=== PATIENT | male | born 1990 | race Caucasian/White ===

== ENCOUNTER 2016-05-25 18:23 | Emergency (ER) | payer SELFPAY ==
--- NOTE | 2016-06-10 08:09 | ER ---
ADMIT: 05/25/2016 RM/LOC: ER [facility] MR#: [id number] [address] [facility] [address] [place], [place] [address] ANAHI SUAREZ [address] [place] [address] Emergency Room Report SEX: M AGE: 25 : 1990 DATE: 05/25/2016 HISTORY OF PRESENT ILLNESS: The patient is a police detainee brought in by police with injury to the face. Apparently, he ran from the police, was tased and his face planted on cement. He has abrasions to his right cheek, laceration to the right upper eyelid and chin and also right ring finger. He did not lose consciousness. I tried to order an x-ray of the neck (cervical spine), but he refused because he did not have any money to take care of his bill. PAST MEDICAL HISTORY: Hydrocephalus. IMMUNIZATIONS: Apparently, I ordered the Tdap. Tdap was given, but is was not documented. SOCIAL HISTORY: He is a pack of a day smoker, meth week a day. PHYSICAL EXAMINATION: GENERAL: He is alert and oriented. Teeth are intact. The laceration in the right NEURO: Oriented x4. RESPIRATION/CHEST: No distress. CHIN: Three sutures simple interrupted after cleaning the area with 6-0 Prolene. Right eyelid, 2 stitches in the corner of the right eyelid with 6-0 Prolene. Right ring finger, three sutures. This is a procedure that was done after I reviewed that did not have any other sutures in hand and was able to close it with 6-0. The finger was dressed up to prevent moving to detach the sutures. The area was about 2.5 cm, three sutures were applied after injecting around the area with lidocaine. CLINICAL IMPRESSION: 1. Medical clearance. 2. Facial abrasion. 3. Laceration to face and chin, right ring finger. PLAN: Released to police with instructions to have sutures removed in the face in 3 to 5 days, and in the hand 7 to 10 days. MALACHI Rivera / Hawk Champion MD / colt JOB #: [id number] CC: Hawk Champion MD, Attending Physician Will Horn MD, Family Physician
== END 2016-05-25 19:45 | disposition home or self-care (01) ==
LOC: ER 18:23
PROC: 0HQFXZZ Repair Right Hand Skin, External Approach (ICD-10-PCS; principal; 2016-05-25)
PROC: 0HQ1XZZ Repair Face Skin, External Approach (ICD-10-PCS; principal; 2016-05-25)
DX: S01.81XA Laceration without foreign body of other part of head, initial encounter (principal); S61.214A Laceration without foreign body of right ring finger without damage to nail, initial encounter; F17.210 Nicotine dependence, cigarettes, uncomplicated; W19.XXXA Unspecified fall, initial encounter

== ENCOUNTER 2016-07-14 10:01 | Inpatient (IN) | payer OTHER ==
[~2016-07-14] VITALS: Ht 162.6 cm; Wt 60.9 kg
--- NOTE | ~2016-07-14 | CLPRLASSUM ---
PATIENT: ANAHI SUAREZ | | [facility] UNIT #: [id number] | [address] AGE/SEX: 25 M : [birth year] | [address] | [place] [address] ADMIT/REG DATE: 07/14/16 | ROOM: [facility] LOC: ADTC | ADTC | Client Problem List/Assessment Summary Date: JULY 23 Problems identified by the client: PRIMARY SUPPORT GROUP, SOCIAL, LEGAL, EMPLOYMENT, HOUSING Problems identified by significant others: SAME ABOVE Client's Strengths as Identified by Client: POSITIVE, DETERMINED, CONSISTANT, DEPENDABLE Problem List: T CLIENT'S LONG HISTORY OF ALCOHOL/DRUG ABUSE HAS RESULTED IN MULTIPLE TREATMENT EPISODES, STRAINED RELATIONSHIPS WITH HIS FAMILY/DAUGHTER, INABILITY TO OBTAIN AND MAINTAIN SECURE EMPLOYMENT, AN EXTENSIVE LEGAL HISTORY AND INCARCERATION. T CLIENT CONTINUES TO DISPLAY DENIAL AND DELUSION. CLIENT CHECKED IN TO TREATMENT, VERBALIZES WILLINGNESS AND A DESIRE FOR USP RECOVERY YET CONTINUES TO WANT TO "RUN THE SHOW" AND PUT CONDITIONS ON HIS WILLINGNESS. T CLIENT PROFESSES A BELIEF IN GOD AND A DESIRE FOR GOD'S WILL, BUT STILL WANTS "TO BE IN CONTROL" DESPITE HIS CURRENT SITUATION AND HISTORY WITH MULTIPLE RELAPSES. T CLIENT VERBALIZES GUILT AND SHAME FOR PAIN HE HAS CAUSED HIS FAMILY. T CLIENT NEEDS TO IDENTIFY PROS/CONS OF GOING TO A SHELTER HOUSE AFTER HE COMPLETES RESIDENTIAL TREATMENT. Code Bryant: T: to be addressed during course of treatment O: problem noted, expected to resolve itself with abstinence--specific tx plan not required R: problem noted, will be referred upon discharge PRIMARY COUNSELOR: JAMIE CURTIS [facility]
--- NOTE | ~2016-07-14 | INDIVTXPLN ---
PATIENT: ANAHI SUAREZ | | [facility] UNIT #: [id number] | [address] AGE/SEX: 25 M : [birth year] | [address] | [place] [address] ADMIT/REG DATE: 07/14/16 | ROOM: [facility] LOC: ADTC | ADTC | Individualized Treatment Plan Date: 21 JUL 2016 Problem Statement/Issue Identified: MICHAEL'S LONG HISTORY OF ALCOHOL/DRUG ABUSE HAS RESULTED IN MULTIPLE TREATMENT EPISODES, STRAINED RELATIONSHIPS WITH HIS FAMILY/YOUNG DAUGHTER, INABILITY TO OBTAIN AND MAINTAIN SECURE EMPLOYMENT, HOUSING AND EXTENSIVE LEGAL HISTORY/INCARCERATION. Goal: MICHAEL WILL HONESTLY EXAMINE HIS ADOLESCENT AND ADULT YEARS AND CLEARLY IDENTIFY AND TAKE OWNERSHIP OF THE IMPACT DRUGS/ALCOHOL/CRIMINAL THINKING HAS HAD ON HIS LIFE AND ABILITY TO BE A PRODUCTIVE MEMBER OF SOCIETY. Objectives/Activities to achieve goal: 1. Michael will complete GETTING STARTED packet including a brief life history. chemical use history/consequences and identify personality characteristics of Michael in active addiction vs. Michael clean and sober. He will process his work with his primary counselor and his peer group remaining open to feedback. Due Date: Complete: Incomplete: 2. Michael will complete an honest and through STEP ONE, providing specific examples of thinking and behaviors in each part of his life, including garcia personal values and how he has compromised them in his addiction. Due Date: Complete: Incomplete: 3. Michael will read BokeNBandwagonIN highlighting examples of thinking and behaviors that parallel his own thinking/behaviors/reactions. He will process his work and any insights gained with his primary counselor. Due Date: Complete: Incomplete: 4. Michael will complete MY CHANGE PLAN recognizing that "change is hard" even when we recognize the need, and individuals who continue to experience successful recovery, have had to change "EVERYTHING!" Michael will share his work, and any insights gained with is primary counselor and selected pages with his peer group. Due Date: Complete: Incomplete: Client signature Date Counselor signature Date Outcome/Measurement of Progress Towards Goal: PATIENT: ANAHI SUAREZ | | [facility] UNIT #: [id number] | [address] AGE/SEX: 25 M : [birth year] | [address] | [place] [address] ADMIT/REG DATE: 07/14/16 | ROOM: [facility] LOC: ADTC | ADTC | Individualized Treatment Plan Counselor's signature Date
--- NOTE | ~2016-07-14 | RESCARESUM ---
PATIENT: ANAHI SUAREZ | | [facility] UNIT #: [id number] | [address] AGE/SEX: 25 M : [birth year] | [address] | [place] [address] ADMIT/REG DATE: 07/14/16 | ROOM: 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 MUCH OF HIS SHARING AND MOST EXAMPLES PROVIDED WERE SUPERFICIAL OF OF LITTLE CONSEQUENCE. HE DID NOT REACH ANY GOALS. CLIENT LEFT AMA (AGAINST MEDICAL ADVICE ) ON DAY 13 OF HIS TREATMENT. Continued Obstacles to Sobriety/Relapse Issues: SELF-WILL, POOR IMPLUSE CONTROL, CLIENT VERBALIZES A DESIRE FOR CHANGE BUT SHOWS LITTLE MOTIVATION TO BRING ABOUT THAT CHANGE. LACK OF HEALTHY SUPPORT SYSTEM: EXTENSIVE LEGAL Family Issues Addressed: NO FAMILY INVOLVEMENT Y Individual Therapy Y Group Therapy Y Educational Series on Substance Abuse N Parents/Significant Others Attended Family Program Y Accepting of Substance Abuse Problem Completed AA Step # 1 During This Level of Care SUPERFICIAL EXAMPLES OF BEHAVIOURS/CONSEQUENCES Significant Incidences During Treatment: CLIENT DISPLAYED A "KNOW IT ALL ATTITUDE" TO STAFF AND PEERS. HE OFTEN CHALLANGED/ARGUED WITH STAFF WHEN REDIRECTED. CLIENT STILL WANTING TO DO THINGS HIS WAY. Reason For Discharge: Y Left Tx Against Medical Advice/Treatment Goals Not Complete PATIENT: ANAHI SUAREZ | | [facility] UNIT #: [id number] | [address] AGE/SEX: 25 M : [birth year] | [address] | [place] [address] ADMIT/REG DATE: 07/14/16 | ROOM: [facility] LOC: ADTC | ADTC | Summary of Residential Care Continuing Care Plan/Recommendations: Y Sponsor Y AA Meetings/NA Meetings Y CLIENT MAY NEED TO BE RE-EVALUATED FOR CURRENT USE HISTORY; CLIENT LIKELY NEEDS [facility] TREATMENT FOLLOWED BY 6-9 MONTHS IN A 1/2-HOUSE. Specific Continuing Care Plan: SEE ABOVE RECOMMENDATIONS PRIMARY COUNSELOR: JAMIE CURTIS [facility]
--- NOTE | 2016-07-14 15:21 | NUR ---
Client is a 25 y/o single male, referred to treatment by his father and brought here today by his step-father. Client came from detention, where he had been for 45 days. Client states DOC is meth, last used 04/27/2016 in the amount of 1.5 gram, client also smoked a single marijuana "blunt" at that time. Client states NKMA and brings no medication with him today. Client was searched, no contraband found. Client did surrender an open pack of cigarettes which were placed in lock storage at the tech station. Client stated that he anticipates family group participation from his mom and his significant other.
--- NOTE | 2016-07-14 17:57 | NUR ---
INITIAL SESSION 1 HR: met with client to welcome him to treatment and ORIENTED HIM TO GUIDELINES, GOALS AND OBJECTIVES. Client shared that he completed res tx here in 2011 and did some aftercare before dropping out. Client said he has charges pending that could get him 20 years in long term. Unfortunately, he seems "underwhelmed" and over confident that he can get probabion. Client did present a visitor's list and requested permission to contact his SO for tolletries and cigarettes. He indicated that she will participate as much as her job will allow.
--- NOTE | 2016-07-14 18:00 | NUR ---
FAMILY CONTACT: Effort to reach client's SO failed. Msg left.
--- NOTE | 2016-07-14 18:15 | NUR ---
Education 1HR: Clt watched video called "Predator part 1" by Santo Hernández with staff present.
--- NOTE | 2016-07-14 23:03 | NUR ---
Tech Note: Client attended the A.A.Meeting. SE: Seeing his mother
--- NOTE | 2016-07-14 23:20 | NUR ---
Education Note: Not yet in programming during 1:00 Education video
--- NOTE | 2016-07-15 04:07 | NUR ---
Bed Note: Client was in bed and motionless at all bed checks.
--- NOTE | 2016-07-15 11:30 | NUR ---
Group 1.5 hr/ 11:1 Client was oriented to group and rules. 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 Client shared about his parents, fear and hurt that mom has Syrosis and hates to see her deteriorate, needs liver transplant. He shared he has social anxiety in groups with more than 5 people. He shared about legals and not being honest til now.
--- NOTE | 2016-07-15 14:33 | NUR ---
PEER REVIEWS 1.5 HRS: Clt participated in peer review process and was able to give open and honest feedback to those receiving a review.
--- NOTE | 2016-07-15 15:38 | NUR ---
Tech Note: Client participated in group walk and watched "Marijuana" by Santo Hernández. Assignment being worked on is Getting Started.
--- NOTE | 2016-07-15 23:11 | NUR ---
Tech note: Client played games and watched movies. Client walked to an offsite AA meeting.
--- NOTE | 2016-07-16 03:58 | NUR ---
Bed note: Client was in bed with eyes closed and no distress at all bed checks
--- NOTE | 2016-07-16 16:46 | NUR ---
Tech Note: Client went to A.A.Meeting at [address]. Client also went on walk. Client is working on Getting Started
--- NOTE | 2016-07-16 21:55 | NUR ---
Tech note: Client's were just starting to grill around 6pm so we did not have rec this evening. Client walked to an offsite AA meeting, played games and watched movies. SE; Family
--- NOTE | 2016-07-17 04:44 | NUR ---
tech note: client was motionless in no distress at all bed checks.
--- NOTE | 2016-07-17 17:23 | NUR ---
Tech Note: Client participated in Big Book study. Client attended voodoo. Client stated that he is working on, "How to Get Started in Treatment." Client received visitors.
--- NOTE | 2016-07-17 23:17 | NUR ---
tech note: Client participated in community clean & attended BUSINESS TECHNOLOGY PROFESSOR meeting. Client was redirected for being in the front lobby after the BUSINESS TECHNOLOGY PROFESSOR meeting. SE: visits.
--- NOTE | 2016-07-18 04:23 | NUR ---
tech note: client was motionless in no distress at all bed checks.
--- NOTE | 2016-07-18 12:00 | NUR ---
Experiential Group 1.5 hr/ Clients all participated in looking at family dynamics and feelings through sculpturing and participated with feedback, relating and/or role-playing. This client was involved in relating/feedback.
--- NOTE | 2016-07-18 14:07 | NUR ---
CASEMANAGEMENT: Talked with client's sports attorney, Chano Padilla who got a continuance on his court case. New date in September 19 at 9A
--- NOTE | 2016-07-18 16:00 | NUR ---
INDIVIDUAL SESSION 1 HR: Met with client to began review of his BIO/PSYCHO/SOCIAL ASSESSMENT. Client did list his pending charges to include 3 counts of deadly weapon, two possession charges, theft, false reporting, resisting arrest, paraphenalia and obstructing a sba business development officer. Client is convinced that he will be given probation, though he has served time in alf and has had numerous arrests. Client's dad has been here more than once tho is apparently clean now but recently released from alf. Client identified his mother as alcoholic stating that she has been diagnosed with cirrosis and waiting a transplant. Addiction throughout the family. 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 He said they did surgery several times to remove fluid but tests in alf indicated that it has not grown/changed. Client talked briefly about his girlfriend and wanting to go back to live with her. Staff explained that his history would suggest a group home house at the least. Client has little or no work history and and extensive use history with methamphetamines being at the top of the list. He submitted his GETTING STARTED packet and was assigned his STEP ONE/LYKIN THINKIN.
--- NOTE | 2016-07-18 16:17 | NUR ---
RECOVERY 101 1 HR/ Clients all filled out 30 question sheet on consequences of their use, looking at every chemical they have used to help see powerlessness and not minimize any chemicals they have abused. Clients learned about early stages and definition of addiction. This client was involved and tends to get into story telling/humor but did mention pain of his addiction.
--- NOTE | 2016-07-18 17:33 | NUR ---
Tech Note: Client went for an outdoor walk in the afternoon. Client stated that he is working on reading the Big Book.
--- NOTE | 2016-07-18 20:46 | NUR ---
Education 1 HR: Clt listened to lecture given by counselor on communication.
--- NOTE | 2016-07-18 20:58 | NUR ---
FAMILY CONTACT: TAlked briefly with client's mom. Will try to reach his step dad tomorrow.
--- NOTE | 2016-07-18 20:59 | NUR ---
FAMILY CONTACT: Talked with client's Signific ant Other who indicated that she will be part of his treatment. I explained that she should receive a family packet tomorrow so we agreed to talk after she has had the opportunity to read through it.
--- NOTE | 2016-07-18 21:00 | NUR ---
TRAUMA: Client denies any trauma history.
--- NOTE | 2016-07-18 23:02 | NUR ---
Client played a game for rec and attended on site N.A.Meeting SE: Court got extended
--- NOTE | 2016-07-19 04:57 | NUR ---
Bed Note: Client was in bed and motionless at all bed checks
--- NOTE | 2016-07-19 12:29 | NUR ---
A.M. 1.5 hr group/ Assignments shared were step 1, feelings letters, timeline to music, and a group member asking for help on how to forgive self. This client was attentive and participated.
--- NOTE | 2016-07-19 15:09 | NUR ---
Tech Note: Client joined group for afternoon walk, listened to speaker from [facility] and is working on Step 1 and Eduar Daoin.
--- NOTE | 2016-07-19 15:52 | NUR ---
Tech Note: Client attended Relapse Prevention education with Mili.
--- NOTE | 2016-07-19 19:50 | NUR ---
Education: 1 hour lecture on STD/AID/HIV gibala by [facility].
--- NOTE | 2016-07-19 22:23 | NUR ---
Tech note : Client worked on Dimeres crafts and get well cards. Client participated in guided meditation and went to an onsite AA meeting.
--- NOTE | 2016-07-20 04:14 | NUR ---
Bed note: Client was in bed with eyes closed and no distress at all bed checks
--- NOTE | 2016-07-20 11:10 | NUR ---
Tech Note: Client is working on Step 1 and an STD info. packet.
--- NOTE | 2016-07-20 12:16 | NUR ---
AM GROUP 13:1.5 HR: Client and peers heard multiple clients process assignments and issues. Most did offer feedback, asked clarifying questions and shared from their own experiences. This client was active with feedback and personal sharing to the point, that he had to be re-directed a couple of times because his feedback, took the focus off the one who was actually processing. Client does relate and did share multiple experiences growing up with out his dad and an alcoholic mom who is now very ill and needs a new liver. Client said that in active addiction, he rarely had contact with his mom even tho he knew she was ill. 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
--- NOTE | 2016-07-20 13:18 | NUR ---
Tech Note: Client walked in the hallways for afternoon exercise.
--- NOTE | 2016-07-20 13:22 | NUR ---
Education One Hour: Client heard from members of the recovery community, who shared their experience, strength and hope.
--- NOTE | 2016-07-20 17:19 | NUR ---
SPIRITUAL EDUCATION 1 HR. Topics today were orienting newcomers and then broke into groups and did presentations on their sections from TOWARDS SPIRITUALITY.
--- NOTE | 2016-07-20 18:45 | NUR ---
Education: 1 hour lecture given by counselor on "Disease concept".
--- NOTE | 2016-07-20 22:18 | NUR ---
Tech note: Client played catch phrase for rec and attended an onsite NA meeting. SE: Spirituality
--- NOTE | 2016-07-21 04:59 | NUR ---
Bed note: Client was in bed with eyes closed and no distress at all bed checks.
--- NOTE | 2016-07-21 08:19 | NUR ---
CASEMANAGEMENT: Client scheduled for GAMBLING ASSESSMENT on 07/25 with Raymon Yang/[facility]
--- NOTE | 2016-07-21 10:37 | NUR ---
Tech Note; Client participated in light stretching for morning exercise. Client stated that he is working on Step One.
--- NOTE | 2016-07-21 12:29 | NUR ---
Group 1.5 Hr Ratio 1:11/Topics today were feelings letters, a good bye letter to addiction and a couple getting started packets. Client shared how he could relate to what peers were sharing from assignments.
--- NOTE | 2016-07-21 16:01 | NUR ---
Step Education 1 hr/Focus was on step 4 making a searching and fearless moral inventory of ourselves. Handed out some questions each person answered on paper and then we discussed. This person participated.
--- NOTE | 2016-07-21 16:19 | NUR ---
Education 1 Hour: Client heard from two members of the recovery community, who shared their experience strength and hope.
--- NOTE | 2016-07-21 17:36 | NUR ---
INDIVIDUAL SESSION 1HR; Met with client to review his first INDIVIDUALIZED PROBLEMS/NEEDS LIST, TREATMENT PLAN AND OBJECTIVES. Client read through the problems/needs list and clarified that he intends to "wait it out," talk to his girlfriend and rn telephone triage about our [facility] house recommendation following residential treatment. Client did read in his problems/needs list that though he verbalizes a belief in God and a desire for recovery, he shows little indication of surrender as he still puts conditions on what he is willing to do and wants to run the show. Client appears to be unconcerned about the half a dozen pending charges he has, stating that he is sure he will just get probation and seems over-confident that the circuit court judge will dismis or reduce the charges. 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 Staff will ask client to do the work and go from there. Client did ask permission to call his girlfriend to see if she was coming for Family today. Staff suggested that he let go and let god; that she either will or she won't. I reminded him that I did talk to her last week about the FAMILY ED and she indicated t hat she would work on getting time off. Client was assigned LETTING GO OF THE NEED TO CONTROL.
--- NOTE | 2016-07-21 20:23 | NUR ---
Education: 1 Hour. Client attended Zack Jean "Unhealthy Families" video.
--- NOTE | 2016-07-21 22:56 | NUR ---
Client went on a walk for rec, participated in guided meditation, and attended the on unit A.A.Meeting. Client was redirected for having sanches up on unit. SE: A.A.Meeting
--- NOTE | 2016-07-22 05:33 | NUR ---
tech note: client was motionless in no distress at all bed checks.
--- NOTE | 2016-07-22 14:39 | NUR ---
Tech Note: Client joined our group walk for exercise. Watched video titled "Sound of Silence" and is working on Letting Go of the Need to Control.
--- NOTE | 2016-07-22 15:38 | NUR ---
PEER REVIEWS 1.25 HRS: Clt participated in peer reviews and took a risk to give open and honest feedback to those receiving a review.
--- NOTE | 2016-07-22 15:49 | NUR ---
Group 1.5 hr/ 12:1 Clients heard peers share GS and Step 1 packets, this client was attentive and did share his GS packet. He shared about his health and history with going from [employer] into addiciton and from the "[place]" as far as mom wealthy . Client has 5-6 felonies, wants recovery to get his life together and lost all family except his parents. Client at first said he is going to [address] or to rent his own place which court would be fine with, but later said he is going only to [facility] or [facility]. A Peer knows him and his GF and said they really have lots of problems, not a healthy relationship and client has told peer so so encouraged him to go to [address] house and not hang onto GF initially to focus on himself. He defended his GF that they are dysfunctional but they love each other, he indicates he just loved for first time this past year, as she is safe and stands up for him and doesn't give up on him. He said in past he got someone easily but now when he wants a child he can't have one and wonders if his drugs screwed him up with fertility.
--- NOTE | 2016-07-22 16:53 | NUR ---
INDIVIDUAL SESSION 1 HR: Met with client who submitted his STEP ONE & MARGARITAJUAREZ THINKIN. As I looked over his Step One, it appeared that most of his responses were very superficial, i.e. "I missed a dentist appointment," on Page 11. From the examples and his writing, it appears that he whipped through it in about a half an hour. He did list "15 Values" but his examples were again, very superficial. Client's attitude has been very blase' from the beginning. He has six pending felony charges and appears convinced that the court will at best, dismiss them, and at worst, give him probation. He has a lengthy legal history and has been in snf before. His thinking, "I did it before, I can do it again." Client has appeared to be totally disconnected from the "reality of his life/situation, etc." Client did say today that he has decided that he is willing to go to a half-way house for which I complimented him. We have encouraged him as has his dad (4 yrs clean/sober) to strongly consider the Arch. As his mother is very ill with cirrhosis. He also has a girlfriend here in which actually probably carries more weight in his decision making process. I gave him back his Step ONe and suggested that he come up with a guesstimate on just how much time with probation and incarceration, he has been "confined" in his 25 years. Session 07/26
--- NOTE | 2016-07-22 20:26 | NUR ---
TECH NOTE: Client participated in reading of guidelines, watched TV/movies and attended optional offsite AA meeting SE: group
--- NOTE | 2016-07-23 04:31 | NUR ---
BED NOTE: Client was in bed, motionless with eyes closed all bed checks.
--- NOTE | 2016-07-23 16:14 | NUR ---
Tech Note: Client is working on Step 1 and Letting Go of the Need to Control. He had a visit from friends.
--- NOTE | 2016-07-23 20:19 | NUR ---
Tech note: Clt played a game for recreation and attended offsite AA mtg. Clt played cards, used phone and watched tv. Clt was redirected for language and droppy pants. SE was cookies
--- NOTE | 2016-07-24 04:24 | NUR ---
BED NOTE: Client was in bed motionless with eyes closed all three bed checks.
--- NOTE | 2016-07-24 15:43 | NUR ---
Tech Note: Client participated in Big Book study. Client stated that he is working on Step One. Italo attended buddhist and received visitors.
--- NOTE | 2016-07-24 22:56 | NUR ---
Tech Note: Client attended the A.A.Panel with Pranav Saini Client also attended the LVN meeting SE:All Day
--- NOTE | 2016-07-25 04:36 | NUR ---
Bed Note: Client was laying in bed and motionless at all bed checks.
--- NOTE | 2016-07-25 07:51 | HP ---
ADMIT: 07/14/2016 RM/LOC: Jaida [facility] MR#: [id number] [address] [place], [place] [id number] TOO SUAREZ [address] [place], [place] [id number] History and Physical SEX: M AGE: 25 : 1990 DATE OF SERVICE: CHIEF COMPLAINT: Chemical dependency. HISTORY OF PRESENT ILLNESS: Michael is a 25-year-old single, white male, admitted to residential level treatment at [facility] on July 14, 2016. He has a lengthy legal history including being in residential around 15 times, prisoned twice with literally numerous charges pending. Recent residential from May 25 through July 14, 2016. He states he knows he is likely going to fdc, was tired of doing drugs, and would like to get clean, straight, and sober before being sentenced. Too's drug of choice on admission is meth. He first started using meth at 18 years of age when he smoked with friends. Initially, he smoked 2-3 times a week. Within a month, he was using a teener a day or more. His heaviest use was in the fall of 2009 when he was having 1 to 1-1/2 eight balls of meth a day. States recently he has been cutting down to less than an 8- ball of meth daily. His last use was May 25, 2016 prior to going to residential. He denies ever doing IV drugs. He admits to running drugs and dealing off and on now for about 7 years. He admits to being paid to have sex and has also paid or given drugs to have sex. He admits to having sex with known IV users. Second drug of choice is cannabis. He first started smoking pot at 10 years of age with sister. In grade school, he smoked about 1-2 times a year. By [employer], he was smoking routinely, and by 16, he was up to a half ounce of pot a day. His heaviest use was in [id number], when he was smoking an ounce of pot a day. Recently, he smokes about a gram a day. His last marijuana use was on May 25. He denies a third drug of choice. He states he never really liked alcohol. He states he used cocaine around 50 times, acid once, and pain pills and benzos around 30 times each. PAST MEDICAL HISTORY: Include brain surgery for benign tumor with hydrocephalus with a third ventriculostomy. MEDICATIONS: None. ALLERGIES: NONE KNOWN. SOCIAL HISTORY: A 25-year-old single, white male. He has no children. He currently is living with his mother in [place]. He just got out of the residential after approximately 2 months. States he has been in residential over 15 times and prisoned twice. Smokes a pack of cigarettes daily. FAMILY HISTORY: Include cancer in his sister, maternal grandfather, stroke in a maternal grandmother. Mother had a history of cirrhosis from alcohol and history of prescription pill abuse. Father had a history of alcohol abuse and drug dependency. Sister was a drug addict and a maternal uncle was a drug ADMIT: 07/14/2016 RM/LOC: [id number] MR#: [id number] [address] [place] [id number] DANIELA QUANUSHAISAAC [place] [address] [place] [address] History and Physical SEX: M AGE: 25 : 1990 addict and alcoholic. PRIOR LEGAL HISTORY: Rather extensive include 3 possession of deadly weapons by felony charges, 2 possession of controlled substance charge, prior arrest for paraphernalia, obstructing the officer, trespassing, theft by unlawful taking, perjury, past charges for burglary, and a number felonies are pending. PHYSICAL EXAMINATION: VITAL SIGNS: Include a height of 5 feet 4 inches, weight is 60 kg, blood pressure 138/90 with a temp of 97.5 and pulse 98. GENERAL APPEARANCE: A 25-year-old male, who is alert, oriented, in no acute distress. HEENT: Pupils reactive. Extraocular muscle intact. TMs normal. Throat normal. NECK: Without nodes or masses. HEART: Regular without murmur. LUNGS: Clear. ABDOMEN: Soft, nontender, benign. AND RECTAL: Deferred. EXTREMITIES: Reveal no clubbing, cyanosis, or edema. NEUROLOGIC: Normal including light touch, strength, DTRs. ASSESSMENT: 1. Stimulant use disorder, severe. 2. Cannabis use disorder, severe. 3. Tobacco use disorder. 4. Benign brain tumor, status post ventriculostomy for hydrocephalus. 5. Increased risk for blood borne pathogens including human immunodeficiency virus, hepatitis C. PLAN: We will obtain HIV and hepatitis C testing. We will proceed with drug and alcohol abuse dependency treatment and counseling and further evaluation and management based on course during the hospitalization. Please see his admission H and P for the details. Darrius Cast MD/ colt JOB #: [id number] CC: Darrius Cast, Attending Physician NO FAMILY PHYSICIAN, Family Physician
--- NOTE | 2016-07-25 09:41 | NUR ---
Tech note: Client is working on Letting go of control and mtg with Kit.
--- NOTE | 2016-07-25 12:54 | NUR ---
Education Note: Clients attended speaker for education Kit J.
--- NOTE | 2016-07-25 15:54 | NUR ---
PEER REVIEWS 1.25 HRS: Clt participated in peer reviews and took a risk to give open and honest feedback to those receiving a review.
--- NOTE | 2016-07-25 16:00 | NUR ---
RECOVERY 101 1 hr/ Clients discussed what they are learning from attending the 12 step recovery meetings about fundamentals of recovery, how to work a program such as: get and use a sponsor, work the steps, read C.A.L., HOW/honesty, openminded &willing, service work, HP/spirituality, opening up, slogans, serenity prayer, home group/meetings, etc. Clients shared and got into story telling at times. They learned 15% is addiction and 85% is the living problem so this is why keep going to meetings and working the program is vital.
--- NOTE | 2016-07-25 18:18 | NUR ---
Education: 1 Hour. Client attended "Feelings" lecture presented by staff.
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
--- NOTE | 2016-07-26 04:45 | NUR ---
tech note: client was motionless in no distress at all bed checks.
--- NOTE | 2016-07-26 14:57 | NUR ---
A.M. 1.5 hr group/ratio 03/16/ Group heard a step 1, how to get started, grief letter and discussed the importants of not glorifying as this client was confronted on this. He heard from counselor and peers its not ok and some wonder if he just still wants to use. He talked about stealing from others when using and one peer said that makes him mad cause he has always worked hard and people stole from him.
--- NOTE | 2016-07-26 15:44 | NUR ---
Relapse Prevention, 1.0 hours, Client attended and actively participated in relapse prevention education which focused on compulsive behaviors and relapse.
--- NOTE | 2016-07-26 16:06 | NUR ---
Tech Note: Client watched Part 2 of Predator by [place] Hernández and had Relapse Prevention for 3:00 education. Assignment being worked on: Letting Go of Need to Control.
--- NOTE | 2016-07-26 16:22 | NUR ---
Education Note: Client attended Relapse Prevention presented by counselor Belen.
--- NOTE | 2016-07-26 20:16 | NUR ---
Education: 1 hour lecture given by counselor on relapse.
--- NOTE | 2016-07-26 20:23 | NUR ---
tech note: Client went for walk for rec, participated in guided meditation and attended AA meeting
--- NOTE | 2016-07-26 23:29 | NUR ---
Tech Note: Client went on a walk for rec and attended the on unit A.A.Meeting. Client participated in Guided Meditation at 1930. SE: [facility]
--- NOTE | 2016-07-27 04:54 | NUR ---
Bed note: client was in bed with eyes closed and no distress at all bed checks.
--- NOTE | 2016-07-27 10:18 | NUR ---
Tech notes: Client is working on Fl's
--- NOTE | 2016-07-27 11:30 | NUR ---
BIG GROUP 4:21 Group was brought together to discuss issues of old behaviors, treatment relationships and other violations of guidlines that are being kept secret. All were encouraged to look at the difficulty they have confronting with assertiveness, rather than passive/aggressive. This client was confronted on his part of listening to music on a phone from someone at the [facility]. last night. All who had knowledge of the cell phone were confronted on keeping the secret and not confronting it at the time.
--- NOTE | 2016-07-27 13:46 | NUR ---
Educational note: Client watched a video for education.
--- NOTE | 2016-07-27 14:08 | NUR ---
DISCHARGE NOTE Client left tx AMA all personal belongings were sent with.
--- NOTE | 2016-07-27 16:00 | NUR ---
INDIVIDUAL SESSION 1 HR: Client approached staff at the urging of one of our techs. Client was in a snit after big group as he got confronted again for his language, wearing his shorts to low, etc. Client was in to the mind set that "all I get is criticizm and noone appreciates the effort I'm making." Client heard that taking about change doesn't count. Action does. I encouraged client to consider the repurcusions of leaving AMA and had him call his senior trial attorney. Client chose to leave anyway.
--- NOTE | 2016-09-09 19:05 | DS ---
ADMIT: 07/14/2016 RM/LOC: Jaida [facility] MR#: [id number] [address] [facility] [address] [place], [place] [phone] TOO SUAREZ [address] [place] [address] General Discharge Summary SEX: M AGE: 25 : 1990 ADMISSION DATE: 07/14/2016 DISCHARGE DATE: 07/27/2016 INDICATION FOR HOSPITALIZATION: Too is a 25-year-old, single, white male, admitted to residential level treatment at [facility] on July 14 after lengthy legal history and being in fci around 15 times. States he was tired of going to snf and doing drugs and wanted to get clean, straight, and sober. Too's drug of choice on admission was methamphetamines. Second drug of choice is cannabis. Please see his admission H and P for further details regarding his history of present illness, past medical history, physical exam, and assessment at the time of hospitalization. HOSPITAL COURSE: On admission, Too was admitted to our residential level treatment [facility]. He was started on melatonin for sleep disorder. HIV and hepatitis C testing were obtained given his increased risk of exposure. During treatment, his primary counselor assigned was Bautista Pope. During treatment, he underwent individual and group therapy sessions on drug and alcohol abuse dependency. He completed an educational series on substance abuse. He was overall accepting his substance abuse problems. He completed step 1 of Alcoholics Anonymous. Relapse triggers were identified and relapse prevention plan was outlined. Spirituality issues were addressed. He ultimately left AMA on day 13 of his treatment program. Incidences include a "no at all attitude." He ultimately left against medical advice on day 13 of his treatment program. Aftercare recommendations include completion of residential level treatment with probable senior care house placement 6 to 9 months with sponsor in AA and NA meeting involvement. LABORATORY AND X-RAY DATA: Include July 19 hepatitis C testing that was ADMIT: 07/14/2016 RM/LOC: [id number] MR#: [id number] [id number] [place], [place] [id number] TOO SUAREZ [address] [place] [address] General Discharge Summary SEX: M AGE: 25 : 1990 negative. HIV tests were confidential and none available at the time of discharge. FINAL DISCHARGE DIAGNOSES: Include: 1. Stimulant use disorder, severe. 2. Cannabis use disorder, severe. 3. Tobacco use disorder. 4. Benign brain tumor, status post ventriculostomy and hydrocephalus and increased risk for blood borne pathogens. PROCEDURES: Include attempts at drug and alcohol abuse dependency treatment and counseling. Please see his hospital record for the details. Darrius Cast MD/ colt JOB #: [id number] CC: Darrius Cast MD, Attending Physician FAMILY PHYSICIAN, Family Physician
== END 2016-07-27 14:10 | disposition left against medical advice (07) | DRG 894 ==
LOC: ADTC 10:01
PROVIDERS: ADMIT Family Medicine
PROC: HZ34ZZZ Individual Counseling for Substance Abuse Treatment, Interpersonal (ICD-10-PCS; principal; 2016-07-14)
PROC: HZ43ZZZ Group Counseling for Substance Abuse Treatment, 12-Step (ICD-10-PCS; principal; 2016-07-14)
DX: F15.20 Other stimulant dependence, uncomplicated (principal); F12.20 Cannabis dependence, uncomplicated; F17.210 Nicotine dependence, cigarettes, uncomplicated; Z98.2 Presence of cerebrospinal fluid drainage device; Z72.89 Other problems related to lifestyle; Z63.72 Alcoholism and drug addiction in family; Z65.3 Problems related to other legal circumstances